=== PATIENT | female | born 1995 | race Caucasian/White ===

== ENCOUNTER → 2020-12-24 13:45 | Outpatient (CLI) | payer SELFPAY ==
--- NOTE | 2020-12-24 13:51 | US_ITS ---
STUDY: ULTRASOUND OF THE FEMALE PELVIS - COMPLETE REASON FOR EXAM: Female, 25 years old. Still vaginal bleeding following miscarriage. TECHNIQUE: Transabdominal and Transvaginal TECHNICAL QUALITY: Adequate. COMPARISON: None. FINDINGS: The uterus is retroverted and is in a midline position. The uterus measures 8.7 cm x 6.9 cm x 5.5 cm. Normal uterine cervix. The endometrium measures 41 mm in thickness, and is heterogeneous (striated). Irregular thickened endometrium with fluid. There is evidence of a 2.5 cm x 2.5 cm x 1.2 cm irregular density suggestive of retained products of conception. There is no demonstrated myometrial mass. I.U.D. - The patient does not have an I.U.D. The right ovary is visualized. The right ovary measures 3.3 cm x 3.5 cm x 1.4 cm. There is no right ovarian cyst or ovarian mass. There is no visualized right adnexal mass or complex lesion. There is normal arterial and normal venous vascularity. The left ovary is visualized. The left ovary measures 3.4 cm x 3.3 cm x 1.5 cm. There is no left ovarian cyst or ovarian mass. There is no visualized left adnexal mass or complex lesion. There is normal arterial and normal venous vascularity. There is no fluid in the cul-de-sac. The pre void volume of the bladder was 476 ml. US/Transvaginal Non- IMPRESSION: Heterogeneously thickened endometrium with findings suggestive of retained products of conception. Electronically Signed: Rao Helms MD at 15:09 EDT , Service support ,
== END ==
PROVIDERS: Referring Provider Obstetrics & Gynecology; Visit Provider Obstetrics & Gynecology
DX: N93.9 Abnormal uterine and vaginal bleeding, unspecified (principal)
CPT/HCPCS: 76830; 76856

== ENCOUNTER 2020-12-25 09:55 | Day surgery (SDC) | payer OTHER, SELFPAY ==
[2020-12-24 15:50] VITALS: BMI 29.3
[2020-12-25 10:36] VITALS: BP 120/75; PULSE 68; RESP 14; TEMP 36.3; O2SAT 100; BMI 29.4
[2020-12-25 10:36] LABS: Internal QC Validated? YES +Cl - CLEAR BKGD; Pregnancy, Urine Negative Negative
[2020-12-25] MEDS: Lactated Ringers 1,000 ML 100 ML IV ×2 (11:04→14:15)
[2020-12-25 11:13] LABS: Hematocrit 44.1 % (37-47); Hemoglobin 14.2 g/dL (12.0-15.0); Mean Corp Hgb Conc 32.2 g/dL (32-36); Mean Corpuscular Volume 86.8 fL (81-99); Platelet Count 214 K/mm3 (150-450); RBC Distribution Width SD 40.9 fl (35.1-43.9); Red Blood Count 5.08 M/mm3 (4.2-5.4); White Blood Count 5.2 K/mm3 (4.4-11.0)
--- NOTE | 2020-12-25 12:24 | HP.PCM.OB_ITS ---
HPI - General HPI Narrative DESEAN CORNELL, is a 25 F who presents for hysteroscopy, D&C, possible symphion for retained products of conception PFSH Medical History (Updated 12/25/20 @ 10:34 by Bel Gates) DVT (deep venous thrombosis) GERD (gastroesophageal reflux disease) Home Medications NK 12/24/20 [History Last Taken Unknown] Allergy/AdvReac Type Severity Reaction Status Date / Time No Known Allergies Allergy Verified 12/24/20 15:48 Social History (Updated 12/25/20 @ 10:36 by Bel Gates) adopted: No household members: spouse and children housing: house number of children: 1 service: No current occupational status: employed 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 Per patient she had a hard/long labor. Georgette Young ROS Eyes Eyes: Reports systems reviewed and no addt'l complaints, except as documented ENT HEENT: Reports systems reviewed and no addt'l complaints, except as documented Cardiovascular Cardiovascular: Reports systems reviewed and no addt'l complaints, except as documented Respiratory/Chest Respiratory/Chest: Reports systems reviewed and no addt'l complaints, except as documented Gastrointestinal Gastrointestinal: Reports systems reviewed and no addt'l complaints, except as documented Genitourinary Genitourinary: Reports systems reviewed and no addt'l complaints, except as documented Musculoskeletal Musculoskeletal: Reports systems reviewed and no addt'l complaints, except as documented Integumentary Integumentary: Reports systems reviewed and no addt'l complaints, except as documented Neurologic Neurologic: Reports systems reviewed and no addt'l complaints, except as documented Psychiatric Psychiatric: Reports systems reviewed and no addt'l complaints, except as documented Endocrine Endocrinology: Reports systems reviewed and no addt'l complaints, except as documented Hematologic/Lymphatic Hematologic/Lymphatic: Reports systems reviewed and no addt'l complaints, except as documented Allergic/Immunologic Allergic/Immunologic: Reports systems reviewed and no addt'l complaints, except as documented Vital Signs Vital Signs Vital Signs: 12/25/20 10:36 Temperature 97.4 F L Temperature Source Temporal Pulse Rate 68 Respiratory Rate 14 Respiratory Pattern Normal Blood Pressure 120/75 Blood Pressure Mean 90 Blood Pressure Source Monitor Blood Pressure Position Semi-Fowlers Pulse Ox 100 Oxygen Delivery Method Room Air Weight Weight: 155 lb 10.342 oz Body Mass Index (BMI) 29.4 Physical Exam Const alert, oriented x3, no apparent distress, average body habitus, healthy appearing and well nourished HEENT normocephalic and moist oral mucous membranes Head and Scalp: atraumatic Eyes PERRL and EOMs intact bilaterally Neck full ROM Resp normal respiratory effort, no retractions and no use of accessory muscles Cardio regular rate and regular rhythm GI soft to palpation, non-tender and non-distended Extremity normal to inspection and full ROM Skin no rashes or lesions noted Neuro no focal motor deficits and no sensory deficits noted Psych mental status grossly normal, affect normal, speech normal and activity/motor behavior normal Labs Labs Labs: Blood Type A POSITIVE Antibody Screen NEGATIVE Hct 44.1 % (37-47) Hgb 14.2 g/dL (12.0-15.0) Assessment & Plan (1) Retained products of conception after miscarriage: PLAN: Patient presents for bleeding greater than 12 weeks following miscarriage Had an ultrasound done by her nurse smoking tobacco cutter operator that was concerning for retained products of conception Ultrasound done today that demonstrates 2.5 x 2.5 x 1.5 cm area suspicious for retained products of conception No fevers, chills, foul-smelling discharge. Patient having light bleeding Recommend proceeding with hysteroscopy, D&C, possible sympathy on for removal of retained products of conception. The nature of the procedure was described to the patient. The risks, benefits, indications, and alternatives to the procedure were discussed with the patient including bleeding, infection, and damage to surrounding structures. Discussed that risks are very low with D&C. Discussed the possibility of perforation and that this could require laparotomy or laparoscopy. Discussed the possibility of damage to surrounding structures including uterus, tubes, ovaries, bowel, or bladder. Understands the risk of hospitalization or reoperation. Voices understanding and agrees to proceed.
--- NOTE | 2020-12-25 12:30 | POC_PTH ---
PATIENT: DESEAN CORNELL LOC: [facility] [place] U#:[id number] AGE/SX: 25/F ROOM: RE12/25/[address]: Dr. Maria Victoria De Leon MD : 1995 BED: DIS: 12/25/2020 SPEC #: [id number] RECD: 12/25/20 15:14 STATUS: NILDA REManuela #: [id number] EZEQUIEL: 12/25/20 12:[address]: Maria Victoria De Leon DEPT: SURGICAL PATHOLOGY RECD BY: Deanna Irene ENTERED: 12/26/20 08:59 SP TYPE: PROD CONC OTHR DR: No Primary Care Phys Tissues: Product of conception, NOS Procedures: Surgery Specimen Level IV HEADER OPERATION: Hysteroscopy, D & C Symphion PRE-OP DIAGNOSIS: Retained products of conception after miscarriage TISSUE SUBMITTED: Products of conception MICROSCOPIC DIAGNOSIS Products of conception: Fragments of immature placental tissue and macerated tissue (products of conception). SJ:gin 12/29/2020 MICROSCOPIC DESCRIPTION Slides are reviewed. GROSS DESCRIPTION Received in fixative is one container labeled with the patient's name and designated products of conception. The specimen consists of multiple irregular fragments of red-stringer soft tissue that in aggregate measure 8 x 8 x 1.2 cm. parts are not grossly recognized. Field Insurance Sales Manager portions are submitted in two cassettes. / AM:gin 12/26/20 TC:5 CPT: 46591
[2020-12-25] MEDS: Cefazolin 2 GM in 0.9% Normal Saline 100 ML IV (13:23)
--- NOTE | 2020-12-25 13:28 | PCM.OPRPT ---
Problems Associated Problem List Diagnoses (1) Retained products of conception after miscarriage: Report of Operation Date of Procedure: 12/25/20 Pre-Operative Diagnosis: Retained products of conception after miscarriage Post-Operative Diagnosis: Same Surgery/Procedure Performed:: Hysteroscopy, suction dilation and curettage, symphion Description of Surgical Findings:: Large amounts of friable appearing tissue in uterus consistent with retained products of conception. dairy store manager: None Type of Anesthesia: MAC Special Medications: Ancef 2g Specimen's removed: Products of conception Estimated Blood Loss (mL): 100 Description of Procedure: The patient was taken to the operating room where general anesthesia was obtained without difficulty. She was prepped and draped in the dorsolithotomy position with yellowfin stirrups. Weighted speculum was placed in the posterior aspect of the vagina and the anterior lip of the cervix was grasped with a ring forcep. The cervix was sequentially dilated to accommodate the hysteroscope. The hysteroscope was then introduced into the uterine cavity and the above findings were noted. The symphion device was then introduced through the hysteroscope attempted to resect products of conception, but unable to maintain cavity distension due to cervical dilation. A sharp curettage was performed and copious tissue was removed. A suction curettage with a 7mm curved suction curette was performed to remove the remainder of the products. Hemostasis was noted. The procedure was deemed complete. All instruments were then removed from the vagina. The patient was again from anesthesia and taken to the recovery room in stable condition. Complications None apparent Admit VTE Documentation VTE Present on Admission: No VTE Mechan Device Prophylaxis: SCD's VTE Pharm Prophylaxis ordered?: No Procedures Urinary/Genital [id number]: [id number] Trmt of incomplete Ab, any TM
--- NOTE | 2020-12-25 13:28 | PCM.DC ---
Discharge Instructions Diet Discharge Diet: No restrictions Activity Discharge Activity: Return to Normal Activity, May Shower and May Take a Tub Bath (in 2 weeks.) May resume sexual activity in: 10-14 days Dressing / Incision Call your doctor if your incision/area has: Sudden Increased Bleeding and Foul Smelling Discharge Call your doctor if you observe: Fever of 101 or Higher, Shortness of breath, Dizziness, Fainting spells, Chest pain and Uncontrolled pain Follow Up Care Please Follow Up With: Maria Victoria De Leon MD When: 2 weeks Test Results: Test results from this visit will be discussed in further detail at your follow-up appointment, if applicable. Discharge Plan Admission Primary Reason for Your Visit: Retained Products of Conception Attending Provider: Maria Victoria De Leon Primary Care Provider: Care Physician,No Primary Instructions Patient Instructions: Dilation and Curettage Discharge Orders/Prescriptions Prescriptions: New naproxen 250 MG tablet 250 - 500 mg PO Q8H PRN PRN (Reason: MILD PAIN) Qty: 30 RF: 1 Referrals / Follow Up: Care Physician,No Primary [Primary Care Provider] - Disposition Disposition (needs filled in before D/C Order can be placed): Home, self care
[2020-12-25 14:18] VITALS: BP 113/70; BP 120/75; PULSE 60; RESP 18; TEMP 37.2; O2SAT 100
[2020-12-25 14:25] VITALS: BP 112/68; BP 120/75; PULSE 52; RESP 16; O2SAT 100
[2020-12-25 14:30] VITALS: BP 114/65; BP 120/75; PULSE 50; RESP 16; TEMP 36.8; O2SAT 100
[2020-12-25 15:12] VITALS: BP 120/75; BP 124/63; PULSE 64; RESP 16; TEMP 36.7; O2SAT 100
== END 2020-12-25 15:34 | disposition home or self-care (01) ==
LOC: SDC 09:56 → AC 09:58
PROVIDERS: Anesthesiology; Referring Provider Obstetrics & Gynecology; Visit Provider Obstetrics & Gynecology
PROC: 0UB98ZZ Excision of Uterus, Via Natural or Artificial Opening Endoscopic (ICD-10-PCS; CPT 58558; principal; 2020-12-25 12:15)
DX: O03.4 Incomplete spontaneous abortion without complication (principal); K21.9 Gastro-esophageal reflux disease without esophagitis
CPT/HCPCS: 59812; 81025; 85027; 86850; 86900; 86901; 87426; 88305; J7120; J2405